=== PATIENT | male | born 1990 | race African-American/Black ===

== ENCOUNTER 2017-01-30 10:09 | Emergency (ER) | payer SELFPAY ==
--- NOTE | 2017-01-30 11:10 | EDM.PDOC ---
ED HPI GENERAL MEDICAL PROBLEM - General Chief Complaint: General Stated Complaint: CHECK UP Time Seen by Provider: 01/30/17 10:40 Source of Information: Reports: Patient History Limitations: Reports: No limitations - History of Present Illness INITIAL COMMENTS - FREE TEXT/NARRATIVE: History of present illness: [26-year-old male comes in requesting STD testing. Patient indicates she's had the area and had unprotected sex with "some girls last night" and then indicated he did not know very well and so he wanted to be tested.] Review of systems: As per history of present illness and below otherwise all systems reviewed and negative. Past medical history: As per history of present illness and as reviewed below otherwise noncontributory. Surgical history: As per history of present illness and as reviewed below otherwise noncontributory. Social history: No reported history of drug or alcohol abuse. Family history: As per history of present illness and as reviewed below otherwise noncontributory. Physical exam: HEENT: Atraumatic, normocephalic, pupils reactive, negative for conjunctival pallor or scleral icterus, mucous membranes moist, throat clear, neck supple, nontender, trachea midline. Lungs: Clear to auscultation, breath sounds equal bilaterally, chest nontender. Heart: S1S2, regular, negative for clicks, rubs, or JVD. Abdomen: Soft, nondistended, nontender. Negative for masses or hepatosplenomegaly. Negative for costovertebral tenderness. Pelvis: Stable nontender. Genitourinary: Deferred. Rectal: Deferred. Extremities: Atraumatic, negative for cords or calf pain. Neurovascular unremarkable. Neuro: Awake, alert, oriented. Cranial nerves II through XII unremarkable. Cerebellum unremarkable. Motor and sensory unremarkable throughout. Exam nonfocal. Cholecystitis benign save is noted for request for STD testing as mentioned in the history of present illness Patient gave urine specimen for testing but declined any venipunctures for more broad-spectrum testing he initially requested. She was informed since this could not be performed for blood any indicated that that was fine he forgot those tests. Diagnostics: [Chlamydia G&C] Therapeutics: [] Impression: [STD screening] Plan: [All palpation] Definitive disposition and diagnosis as appropriate pending reevaluation and review of above. - Related Data Allergies Allergy/AdvReac Type Severity Reaction Status Date / Time No Known Allergies Allergy Verified 01/30/17 10:26 Home Meds: Home Meds . [No Known Home Meds] 01/30/17 [History] Past Medical History - Past Health History Medical/Surgical History: Denies Medical/Surgical History Social & Family History - Family History Family Medical History: Noncontributory - Tobacco Use Smoking Status *Q: Current Every Day Smoker Years of Tobacco use: 3 Packs/Tins Daily: 0.5 - Alcohol Use Days Per Week of Alcohol Use: 3 Number of Drinks Per Day: 5 Total Drinks Per Week: 15 - Recreational Drug Use Recreational Drug Use: Yes Drug Use in Last 12 Months: Yes Recreational Drug Type: Reports: Marijuana/Hashish Recreational Drug Use Frequency: Weekly ED ROS GENERAL - Review of Systems Review Of Systems: See Below (History of present illness) ED EXAM, GENERAL - Physical Exam Exam: See Below (History of present illness) Course - Vital Signs Last Recorded V/S: Last Vital Signs Temp 36.4 C 01/30/17 10:26 Pulse 89 01/30/17 10:26 Resp 18 01/30/17 10:26 BP 130/70 01/30/17 10:26 Pulse Ox 98 01/30/17 10:26 - Orders/Labs/Meds Orders: Active Orders 24 hr Category Date Time Status CHLAMYDIA TRACHOMATIS/GC AMPLF Stat Lab 01/30/17 10:39 Ordered Departure - Departure Time of Disposition: 11:08 Disposition: Home, Self-Care 01 Condition: good Clinical Impression: Concern about STD in male without diagnosis Forms: ED Department Discharge Additional Instructions: The following information is given to patients seen in the emergency department who are being discharged to home. This information is to outline your options for follow-up care. We provide all patients seen in our emergency department with a follow-up referral. The need for follow-up, as well as the timing and circumstances, are variable depending upon the specifics of your emergency department visit. If you don't have a primary care physician on staff, we will provide you with a referral. We always advise you to contact your personal physician following an emergency department visit to inform them of the circumstance of the visit and for follow-up with them and/or the need for any referrals to a consulting specialist. The emergency department will also refer you to a specialist when appropriate. This referral assures that you have the opportunity for follow-up care with a specialist. All of these measure are taken in an effort to provide you with optimal care, which includes your follow-up. Under all circumstances we always encourage you to contact your private physician who remains a resource for coordinating your care. When calling for follow-up care, please make the office aware that this follow-up is from your recent emergency room visit. If for any reason you are refused follow-up, please contact the [facility] Emergency Department at and asked to speak to the emergency department charge nurse. Followup with a primary care provider for management or future concerns. [facility] [address] [place] [id number] - My Orders Last 24 Hours: My Active Orders 01/30/17 10:39 CHLAMYDIA TRACHOMATIS/GC AMPLF Stat - Assessment/Plan Last 24 Hours: My Active Orders 01/30/17 10:39 CHLAMYDIA TRACHOMATIS/GC AMPLF Stat
[2017-01-30 11:19] VITALS: BP 120/65
== END 2017-01-30 11:16 | disposition home or self-care (01) ==
LOC: MW.ED 10:09
DX: Z11.3 Encounter for screening for infections with a predominantly sexual mode of transmission (principal); F17.210 Nicotine dependence, cigarettes, uncomplicated
CPT/HCPCS: 99281; 99283